=== PATIENT | female | born 1995 | race African-American/Black ===

== ENCOUNTER 2021-12-17 21:04 | Emergency (ER) | payer OTHER ==
[2021-12-17] MEDS ORDERED: methylPREDNISolone NA SUCC 125 MG/2 ML VIAL IVPUSH ONE (21:09)
[2021-12-17] MEDS ORDERED: FAMOTIDINE 20 MG/50 ML IVPB 20 MG/50 ML MG IVPB ONE (21:09)
[2021-12-17 21:11] VITALS: BP 116/89; TEMP 98.4; BMI 40.3
[2021-12-17] MEDS ORDERED: FAMOTIDINE 10 MG/ML VIAL IVPB ONE (21:16)
[2021-12-17] MEDS ORDERED: methylPREDNISolone NA SUCC 125 MG/2 ML VIAL ONE (21:16)
[2021-12-17] MEDS ORDERED: EPINEPHrine/PF 1 MG/1 ML (1:1,000) AMPULE ONE (21:54)
[2021-12-18 01:37] VITALS: PULSE 100
== END 2021-12-18 01:37 | disposition home or self-care (01) ==
LOC: JER 21:04
PROC: 3E033GC Introduction of Other Therapeutic Substance into Peripheral Vein, Percutaneous Approach (ICD-10-PCS; principal; 2021-12-17)
DX: T78.40XA Allergy, unspecified, initial encounter (principal)
CPT/HCPCS: 99284-25